=== PATIENT | male | born 1995 | race Caucasian/White ===

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

== ENCOUNTER 2021-02-15 20:10 | Emergency (ER) | payer BC, OTHER ==
[2021-02-15] MEDS ORDERED: Diphtheria,Pertussis(Acell),Tetanus Vaccine 0.5 ML Syringe IM ONE (20:33)
[2021-02-15 20:34] VITALS: BP 145/96; PULSE 96
[2021-02-15] MEDS ORDERED: Lidocaine/EPINEPHrine/Tetracaine Soln 1 ML TOP ONE (20:34)
--- NOTE | 2021-02-15 20:40 | EDM.PDOC ---
ED HPI GENERAL MEDICAL PROBLEM - General Chief Complaint: Laceration Stated Complaint: LT MIDDLE FINGER LAC Time Seen by Provider: 02/15/21 20:26 Source of Information: Reports: Patient, RN Notes Reviewed History Limitations: Reports: No Limitations - History of Present Illness INITIAL COMMENTS - FREE TEXT/NARRATIVE: Patient is a 25-year-old male who presents to the ER for evaluation of a left distal middle finger laceration. Patient was opening something at work today, and holding it down with his left hand. He was using a newer knife, and ended up lacerating the tip of his distal left middle finger. This involves the very corner of the distal nail, and resulted in a skin flap type laceration. He tried to use new skin at home and at work however this is not provided adequate closure of the wound. This happened at around 3 PM today. Patient is not sure of his last tetanus booster. Patient denies any other sick-like symptoms, fever/chills, cough/shortness of breath, nausea/vomiting/diarrhea. Patient is denying any sort of numbness or tingling in the area of the injury. He is able to move his finger in all range of motion without difficulty. Left Finger-Middle Pain Score (Numeric/FACES): 3 - Related Data Allergies Allergy/AdvReac Type Severity Reaction Status Date / Time Penicillins Allergy Rash Verified 02/15/21 20:26 sulfa Allergy Rash Uncoded 02/15/21 20:26 Home Meds: Home Meds . [No Known Home Meds] 09/29/15 [History] Past Medical History - Past Health History Medical/Surgical History: Denies Medical/Surgical History ED ROS GENERAL - Review of Systems Review Of Systems: Comprehensive ROS is negative, except as noted in HPI. ED EXAM, SKIN/RASH Exam: See Below Exam Limited By: No Limitations General Appearance: Alert, WD/WN, No Apparent Distress Respiratory/Chest: No Respiratory Distress, Lungs Clear, Normal Breath Sounds, No Accessory Muscle Use, Chest Non-Tender Cardiovascular: Normal Peripheral Pulses, Regular Rate, Rhythm, No Edema Peripheral Pulses: 2+: Radial (L), Radial (R) Extremities: Normal Range of Motion, Normal Capillary Refill Neurological: Alert, Oriented, Normal Cognition, No Motor/Sensory Deficits Psychiatric: Normal Affect, Normal Mood Skin: Warm, Dry, Normal Color, No Rash, Wound/Incision (Skin flap type laceration to the distal left middle finger. This does involve the very distal corner of the nail. The wound itself measures about 1 cm by about 0.5 cm in width. This is pretty close to a complete avulsion injury.) ED SKIN PROCEDURES - Laceration/Wound Repair Left Posterior Distal Digit - 3rd (Middle) Appearance: Superficial, Linear, Clean Distal NVT: Neuro & Vascular Intact, No Tendon Injury Anesthetic Type: Topical (LET applied to wound bed) Skin Prep: Chlorhexidine (Hibiciens), Saline Exploration/Debridement/Repair: Wound Explored, In a Bloodless Field, Explored to Base, Minimal Debridement (The avulsion injury was topically anesthetized with LET and the patient opted to have the portion of skin cut off rather than having sutures.), No Foreign Material Found Sterile Dressing Applied: Nurse Tetanus Status Addressed: Yes (updated at today's visit) Complications: No Course - Vital Signs Last Recorded V/S: Last Vital Signs Temp 97 F 02/15/21 20:32 Pulse 96 02/15/21 20:32 Resp 16 02/15/21 20:32 BP 145/96 H 02/15/21 20:32 Pulse Ox 99 02/15/21 20:32 - Orders/Labs/Meds Orders: Active Orders 24 hr Category Date Time Status Vaccine to be Administered/Admin Charge [RC] ASDIRECTED Care 02/15/21 20:34 Ordered Meds: Medications Discontinued Medications Generic Name Dose Route Start Last Admin Trade Name Freq PRN Reason Stop Dose Admin Diphtheria/Tetanus/Acell Pertussis 0.5 ml 02/15/21 20:33 02/15/21 21:04 Diphtheria,Pertussis(Acell),Tetanus Vaccine 0.5 Ml Syringe IM 02/15/21 20:34 0.5 ml .ONCE ONE Administration Lidocaine/Tetracaine 1 ml 02/15/21 20:34 02/15/21 21:03 Lidocaine/Epinephrine/Tetracaine Soln 1 Ml TOP 02/15/21 20:35 1 ml ONETIME ONE Administration - Re-Assessments/Exams Free Text/Narrative Re-Assessment/Exam: 02/15/21 20:39 Patient presents to the ER for the evaluation of his middle finger laceration. Patient was presented with choices and how to close the wound however since this is more of an avulsion type injury, he did opt just to have the rest of the skin flap debrided off. Departure - Departure Time of Disposition: 20:40 Disposition: Home, Self-Care 01 Condition: Good Clinical Impression: Laceration of finger of left hand with damage to nail Qualifiers: Encounter type: initial encounter Finger: middle finger Foreign body presence: without foreign body Qualified Code(s): S61.313A - Laceration without foreign body of left middle finger with damage to nail, initial encounter - Discharge Information *PRESCRIPTION DRUG MONITORING PROGRAM REVIEWED*: No *COPY OF PRESCRIPTION DRUG MONITORING REPORT IN PATIENT LUIS: No Instructions: Laceration Care, Adult, [id number] Referrals: Lucas Christina MD [Primary Care Provider] - Forms: ED Department Discharge Additional Instructions: You have been evaluated in the ED for your laceration. Your wound was numbed up, and the skin flap was cut away from your avulsion type injury. This should heal up just fine, there might be quite a bit of scab/scar tissue that formed on the fingertip but then it should heal up well. Please keep this area clean and dry, you may cleanse with regular soap and water. No vigorous scrubbing. Please try to avoid submerging the affected area in water for prolonged periods of time until the sutures are removed. We dressed the wound with some topical bacitracin and a nonstick bandage and a Coban type dressing to the fingertip for the next few days. Watch out for signs of infection like increased redness, swelling, pain at the laceration site, or if you should develop any fevers or chills. You may use Tylenol or ibuprofen every 6 hours as needed for ongoing pain management. Please return to ED if your symptoms change or worsen. Sepsis Event Note (ED) - Evaluation Sepsis Screening Result: No Definite Risk - Focused Exam Vital Signs: Vital Signs Temp Pulse Resp BP Pulse Ox 02/15/21 20:32 97 F 96 16 145/96 H 99 - My Orders Last 24 Hours: My Active Orders 02/15/21 20:34 Vaccine to be Administered/Admin Charge [RC] ASDIRECTED - Assessment/Plan Last 24 Hours: My Active Orders 02/15/21 20:34 Vaccine to be Administered/Admin Charge [RC] ASDIRECTED
== END 2021-02-15 22:00 | disposition home or self-care (01) ==
LOC: JD.ED 20:10
DX: S61.313A Laceration without foreign body of left middle finger with damage to nail, initial encounter (principal); Z88.0 Allergy status to penicillin; Z88.2 Allergy status to sulfonamides; Z23 Encounter for immunization; W26.0XXA Contact with knife, initial encounter
CPT/HCPCS: 90471; 90715; 99282